=== PATIENT | male | born 1965 | race Caucasian/White ===

== ENCOUNTER 2020-12-08 16:34 | Emergency (ER) | payer MEDICAID ==
[~2020-12-08] VITALS: Ht 177.8 cm; Wt 94.3 kg
[2020-12-08 16:45] VITALS: BP_SYST 127
[2020-12-08] MEDS ORDERED: SULFAMETHOXAZOLE/TRIMETHOPR DS 1 TABLET PO ONE (17:15)
[2020-12-08] MEDS ORDERED: cephALEXin 500 MG CAPSULE PO ONE (17:15)
[2020-12-08] MEDS ORDERED: CEPH250C PO (17:25)
[2020-12-08] MEDS ORDERED: SULF1TAB48 PO (17:25)
== END 2020-12-08 17:39 | disposition home or self-care (01) ==
LOC: SED 16:34
DX: L02.512 Cutaneous abscess of left hand (principal); L03.114 Cellulitis of left upper limb; Z79.899 Other long term (current) drug therapy
CPT/HCPCS: 99284